=== PATIENT | female | born 1960 | race Caucasian/White ===

== ENCOUNTER 2019-04-21 18:06 | Emergency (ER) | payer OTHER ==
[~2019-04-21] VITALS: Ht 172.7 cm; Wt 75.3 kg
== END 2019-04-21 21:32 | disposition home or self-care (01) ==
LOC: ER 18:06
DX: S93.491A Sprain of other ligament of right ankle, initial encounter (principal); X50.0XXA Overexertion from strenuous movement or load, initial encounter; Y93.89 Activity, other specified; Y92.89 Other specified places as the place of occurrence of the external cause; Y99.8 Other external cause status

== ENCOUNTER 2020-11-19 13:49 | Outpatient (CLI) | payer OTHER | END 2020-11-19 14:04 | disposition home or self-care (01) | LOC: LAB 13:49 | DX: Z03.818 Encounter for observation for suspected exposure to other biological agents ruled out (principal) ==